=== PATIENT | male | born 1990 ===

== ENCOUNTER 2021-11-10 11:39 | Emergency (ER) | payer SELFPAY ==
[~2021-11-10] VITALS: Ht 172.7 cm; Wt 117.9 kg
== END 2021-11-10 13:51 | disposition home or self-care (01) ==
LOC: ER 11:39
DX: S01.21XA Laceration without foreign body of nose, initial encounter (principal); Z23 Encounter for immunization; W26.9XXA Contact with unspecified sharp object(s), initial encounter
CPT/HCPCS: 12011; 90471; 90714; 99282-25